=== PATIENT | female | born 1940 | race Caucasian/White ===

== ENCOUNTER 2017-10-12 07:25 | Outpatient (CLI) | payer MEDICARE | END 2017-10-12 07:26 | disposition home or self-care (01) | LOC: BICMAMMO 07:25 | PROVIDERS: ATTEND Family Medicine | DX: Z12.31 Encounter for screening mammogram for malignant neoplasm of breast (principal) | CPT/HCPCS: 77063; G0202; 77067 ==

== ENCOUNTER 2018-12-08 08:32 | Outpatient (CLI) | payer MEDICARE ==
--- NOTE | 2018-12-08 09:47 | BD ---
DEXA BONE DENSITY STUDY: Date: 12/08/18 HISTORY: Screening. FINDINGS: Lumbar Spine: BMD (g/cm2) L1 0.840 T-Score: -1.4 Z-Score: 0.8 L2 0.956 T-Score: -0.7 Z-Score: 1.8 L3 1.005 T-Score: -0.7 Z-Score: 1.9 L4 0.974 T-Score: -0.8 Z-Score: 1.9 L1-L4 0.945 T-Score: -0.9 Z-Score: 1.5 Femoral Neck: 0.565 T-Score: -2.6 Z-Score: -0.4 Total Femur: 0.719 T-Score: -1.8 Z-Score: 0.0 IMPRESSION: Calculated bone mineral density meets WHO criteria for osteoporosis in the left femoral neck and plac es the patient at prominent increased risk for fracture. POS: [facility]
== END 2018-12-08 08:33 | disposition home or self-care (01) ==
LOC: BICMAMMO 08:32
DX: Z12.31 Encounter for screening mammogram for malignant neoplasm of breast (principal); Z13.820 Encounter for screening for osteoporosis; M81.0 Age-related osteoporosis without current pathological fracture; Z98.890 Other specified postprocedural states
CPT/HCPCS: 77063; 77067; 77080

== ENCOUNTER 2021-07-13 11:05 | Outpatient (CLI) | payer MEDICARE | END 2021-07-13 11:06 | disposition home or self-care (01) | LOC: BICMAMMO 11:05 | PROVIDERS: ATTEND Obstetrics & Gynecology | DX: Z12.31 Encounter for screening mammogram for malignant neoplasm of breast (principal) | CPT/HCPCS: 77063; 77067 ==

== ENCOUNTER 2022-07-14 10:23 | Outpatient (CLI) | payer MEDICARE | END 2022-07-14 10:24 | disposition home or self-care (01) | LOC: BICMAMMO 10:23 | PROVIDERS: ATTEND Obstetrics & Gynecology | DX: Z12.31 Encounter for screening mammogram for malignant neoplasm of breast (principal); M81.0 Age-related osteoporosis without current pathological fracture; M85.89 Other specified disorders of bone density and structure, multiple sites; Z91.89 Other specified personal risk factors, not elsewhere classified | CPT/HCPCS: 77063; 77067; 77080 ==

== ENCOUNTER 2023-09-13 14:47 | Outpatient (CLI) | payer MEDICARE | END 2023-09-13 14:48 | disposition home or self-care (01) | LOC: BICMAMMO 14:47 | PROVIDERS: ATTEND Obstetrics & Gynecology | DX: Z12.31 Encounter for screening mammogram for malignant neoplasm of breast (principal); M81.0 Age-related osteoporosis without current pathological fracture; M85.89 Other specified disorders of bone density and structure, multiple sites; Z91.89 Other specified personal risk factors, not elsewhere classified | CPT/HCPCS: 77063; 77067; 77080 ==

== ENCOUNTER 2024-11-01 10:32 | Outpatient (CLI) | payer MEDICARE | END 2024-11-01 10:33 | disposition home or self-care (01) | LOC: BICMAMMO 10:32 | PROVIDERS: ATTEND Family Medicine | DX: Z12.31 Encounter for screening mammogram for malignant neoplasm of breast (principal); Z91.89 Other specified personal risk factors, not elsewhere classified | CPT/HCPCS: 77063; 77067 ==